=== PATIENT | male | born 1965 | race African-American/Black ===

== ENCOUNTER 2018-12-02 10:22 | Emergency (ER) | payer BC ==
[~2018-12-02] VITALS: Ht 172.7 cm; Wt 85.0 kg
[2018-12-02 11:07] VITALS: BP 141/93
== END 2018-12-02 14:23 | disposition left against medical advice (07) ==
LOC: ER 10:33
DX: Z53.21 Procedure and treatment not carried out due to patient leaving prior to being seen by health care provider (principal)

== ENCOUNTER 2018-12-13 14:33 | Emergency (ER) | payer BC ==
[~2018-12-13] VITALS: Ht 172.7 cm; Wt 85.0 kg
[2018-12-13] MEDS ORDERED: TETANUS, DIPHTHERIA, PERTUSSIS VAC/PF 0.5ML (>7YR OLD) IM ONE (16:15)
[2018-12-13] MEDS ORDERED: CEFAZOLIN SODIUM 1000MG/VIAL IM ONE (16:15)
[2018-12-13 17:55] VITALS: BP 146/91
== END 2018-12-13 18:00 | disposition home or self-care (01) ==
LOC: ER 14:33
DX: S61.411A Laceration without foreign body of right hand, initial encounter (principal); W22.8XXA Striking against or struck by other objects, initial encounter; Y93.89 Activity, other specified; Y92.89 Other specified places as the place of occurrence of the external cause; Z23 Encounter for immunization
CPT/HCPCS: 26418; 73130; 90471; 90715; 96372; 99284; J0690; Z7610; 99283